=== PATIENT | female | born 1995 | race Caucasian/White ===

== ENCOUNTER 2019-02-02 17:40 | Emergency (ER) | payer SELFPAY ==
--- NOTE | 2019-02-02 17:58 | EDPHY ---
General - History Smoking Status: Current every day smoker Time Seen by Provider: 02/02/19 17:57 Narrative: CLINICAL IMPRESSION: Psychosis ASSESSMENT/PLAN: Patient is a 23-year-old female with a history of asthma, PTSD, OCD and generalized anxiety disorder who presents after being placed on an M1 hold secondary to erratic behavior. Patient is afebrile and nontoxic-appearing, she is very anxious on arrival, pressured speech and hyperactive. Physical examination is otherwise unremarkable. Patient was given 5 of Zyprexa on arrival. CBC revealed no evidence of leukocytosis or anemia. Metabolic panel with no metabolic abnormalities or acute kidney injury. Alcohol negative. Drug screen positive for cannabinoid and opioid. There were no clinical findings to suggest intoxication, metabolic abnormality or other toxidrome. The patient was formally evaluated by behavioral health, [facility] and after formal evaluation deemed appropriate for placement. On repeat examination and prior to transfer the patient is resting comfortably, she is much more comfortable appearing and less anxious. She denies any physical complaints. Dr. Arellano will resume care of this patient at this time, all aspects of this patient's care were discussed with him. We are awaiting placement at this time. DIFFERENTIAL DX: Differential diagnosis including but not limited to cam, anxiety, medication noncompliance, medication side effect, depression and illicit drug use. ED COURSE: 1924: Touch base with [facility], once patient medically clear plan will be for placement. They have already done a formal evaluation prior to arrival. 2057: Patient's Ania is now present. The patient is much more calm, resting comfortably in bed. Patient's reports that over the last week her behavior has been quite erratic. She is unsure exactly what happened today however was told that she decided that she wanted to sell a bunch of her belongings and started yd sale in their front yd. She has on multiple occasions this week gotten into their vehicle knowing that there is no gas in it , driving it for short period and then abandoning at. 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 Her is concerned about this erratic behavior, she has never witness this before and they have been together for over a year. 2205: Awaiting placement at this time. 2337: On repeat examination the patient is still resting comfortably, she is easily arousable. Denies any physical complaints. Case discussed with Dr. Arellano who will resume care of this patient at this time. CHIEF COMPLAINT: Anxiety, M1 hold HPI: Patient is a 23-year-old female with a history of asthma, PTSD, OCD and LISA who presents to the emergency department after being placed on an M1 hold by [facility] prior to arrival. Patient reports she was at her home, she was having a yd sale when police suddenly showed up at her house and stated they were placing her on a mental health hold, she reports running from the police, was detained and brought here for further evaluation. Per M1 hold patient with erratic behavior, gathering knife in the household making the remains feel unsafe, subsequently police were called. Patient reports to me a significant history of PTSD and anxiety exacerbations that present very similar to this, she reports 7 episodes total. She states to me that her episodes are very similar to bipolar and "the unchanged I can't seem to tell the difference". Patient was followed by [facility], was reportedly discharged in October secondary to not being able to pay her bills and frequently being late to her appointments. She does endorse a suicide attempt 12 years prior for which she was admitted for, she tried to overdose on her antidepressants. She denies any suicidal ideation or homicidal ideation today. She denies any history of cam or other psychiatric diagnoses. Patient was on the telephone as I entered the room with her , at the end of her conversation she states that [place] staff [place] the airport [place] which she was trying to "fly way". PMH: Asthma, PTSD, GA D, OCD Family History: Not contributory Social History: Current smoker, occasional marijuana, denies alcohol REVIEW OF SYSTEMS: All other systems negative Constitutional: No fever, no chills, appetite change. Eyes: No discharge, vision change ENT: No sore throat, congestion, ear pain. Cardiovascular: No chest pain, no palpitations. Respiratory: No cough, no shortness of breath. Gastrointestinal: No abdominal pain, no vomiting, diarrhea. Genitourinary: No hematuria, dysuria, flank pain, pelvic pain Musculoskeletal: No back pain, joint swelling, joint pain, myalgias. Skin: No rashes, color change. Neurological: No headache, dizziness, weakness. PHYSICAL EXAM: General Appearance: Alert, very hyperactive, not toxic-appearing. HENT: Normocephalic, atraumatic. Bilateral external ears are normal. Bilateral tympanic membranes are normal with pearly muro reflex. Nares are clear, mucosa is pink. Oropharynx is clear, uvula is midline. There is no tonsillar enlargement or exudate. The dentition is normal. Eyes: PERRLA, no acute vision change, nystagmus, swelling, discharge, pain or photosensitivity. Conjunctiva pink, no pallor or injection. Neck: Supple, nontender, no lymphadenopathy, no midline pain, FROM, no meningismus. Respiratory: There are no retractions, lungs are clear to auscultation. Cardiac: Mild tachycardia, no murmurs or gallops. Gastrointestinal: Abdomen is soft, nontender, bowel sounds normal, no masses/ hernia, no rigidity, guarding or focal peritoneal findings. Neurological: Alert and oriented x 3, CN 2-12 grossly intact, normal gait no ataxia, DTR's intact, normal sensation and strength Skin: Warm, dry, no rashes, no nodules on palpation. Musculoskeletal: Extremities are symmetrical, full range of motion, no tenderness, deformity, swelling, or erythema. Psychiatric: Patient is oriented X 3, patient is agitated, hyperactive. Her speech is very pressured. MEDICAL DECISION MAKING: Patient was seen independently. Secondary supervising physician at time of evaluation was Dr. Chapin. Diagnosis: Psychosis. New, requires workup Summary: See Assessment and Plan for summary of ED visit Clinical lab tests: ordered / reviewed. Independent visualization of images, tracing, or specimens: Yes. Decision to obtain medical records or history from someone other than the patient: Yes, PD report Review / Summarize previous medical records: None available Discussed patient with another provider: Yes Patient Progress: Stable, dispo pending. (Catalina Jain) 1688 care assumed from CRIS Jain pending placement. 0140 patient has been accepted to [facility] by Dr. Fagan I have completed the EMTALA. (Mckay Arellano) - Objective Vital Signs: Initial Vital Signs Temperature (C) 36.8 C 02/02/19 17:44 Heart Rate 116 H 02/02/19 17:44 Respiratory Rate 16 02/02/19 17:44 Blood Pressure 143/90 H 02/02/19 17:44 O2 Sat (%) 99 02/02/19 17:44 O2 Delivery Mode Room Air Allergies/Adverse Reactions: nitrofurantoin [From Macrobid] Allergy (Verified 02/02/19 17:44) Home Medications: Medication Instructions Recorded CLONAZEPAM 02/02/19 Laboratory Results: Laboratory Results 02/02/19 18:00 02/02/19 18:00 02/02/19 02/02/19 02/02/19 20:35 18:00 18:00 WBC RBC Hgb Hct MCV MCH MCHC RDW Plt Count MPV Neut % (Auto) Lymph % (Auto) [place] % (Auto) Eos % (Auto) Baso % (Auto) Nucleat RBC Rel Count Absolute Neuts (auto) Absolute Lymphs (auto) Absolute Monos (auto) Absolute Eos (auto) Absolute Basos (auto) Absolute Nucleated RBC Immature Gran % Immature Gran # Sodium 136 mEq/L mEq/L (135-145) Potassium 3.8 mEq/L mEq/L (3.5-5.2) Chloride 105 mEq/L mEq/L (97-110) Carbon Dioxide 21 mEq/l L mEq/l (22-31) Anion Gap 10 mEq/L mEq/L (6-14) BUN 10 mg/dL mg/dL (7-23) Creatinine 0.6 mg/dL mg/dL (0.6-1.0) Estimated GFR > 60 Glucose 85 mg/dL mg/dL (70-100) Calcium 9.6 mg/dL mg/dL (8.5-10.4) Beta HCG, Qual NEGATIVE Urine Opiates Screen NEGATIVE (NEGATIVE) Urine Barbiturates NEGATIVE (NEGATIVE) Ur Phencyclidine Scrn NEGATIVE (NEGATIVE) Ur Amphetamine Screen NEGATIVE (NEGATIVE) U Benzodiazepines Scrn NON-NEGATIVE H (NEGATIVE) Urine Cocaine Screen NEGATIVE (NEGATIVE) U Marijuana (THC) Screen NON-NEGATIVE H (NEGATIVE) Ethyl Alcohol < 10 mg/dL mg/dL (0-10) 02/02/19 18:00 WBC 9.14 10^3/uL 10^3/uL (3.80-9.50) RBC 4.55 10^6/uL 10^6/uL (4.18-5.33) Hgb 13.3 g/dL g/dL (12.6-16.3) Hct 39.0 % % (38.0-47.0) MCV 85.7 fL fL (81.5-99.8) MCH 29.2 pg pg (27.9-34.1) MCHC 34.1 g/dL g/dL (32.4-36.7) RDW 13.4 % % (11.5-15.2) Plt Count 252 10^3/uL 10^3/uL (150-400) MPV 11.1 fL fL (8.7-11.7) Neut % (Auto) 57.4 % % (39.3-74.2) Lymph % (Auto) 34.6 % % (15.0-45.0) [place] % (Auto) 4.9 % % (4.5-13.0) Eos % (Auto) 1.6 % % (0.6-7.6) Baso % (Auto) 1.3 % % (0.3-1.7) Nucleat RBC Rel Count 0.0 % % (0.0-0.2) Absolute Neuts (auto) 5.24 10^3/uL 10^3/uL (1.70-6.50) Absolute Lymphs (auto) 3.16 10^3/uL H 10^3/uL (1.00-3.00) Absolute Monos (auto) 0.45 10^3/uL 10^3/uL (0.30-0.80) Absolute Eos (auto) 0.15 10^3/uL 10^3/uL (0.03-0.40) Absolute Basos (auto) 0.12 10^3/uL H 10^3/uL (0.02-0.10) Absolute Nucleated RBC 0.00 10^3/uL 10^3/uL (0-0.01) Immature Gran % 0.2 % % (0.0-1.1) Immature Gran # 0.02 10^3/uL 10^3/uL (0.00-0.10) Sodium Potassium Chloride Carbon Dioxide Anion Gap BUN Creatinine Estimated GFR Glucose Calcium Beta HCG, Qual Urine Opiates Screen Urine Barbiturates Ur Phencyclidine Scrn Ur Amphetamine Screen U Benzodiazepines Scrn Urine Cocaine Screen U Marijuana (THC) Screen Ethyl Alcohol Medications Given: Discontinued Medications Olanzapine (Olanzapine) 5 mg PO ONCE ONE Stop: 02/02/19 18:21 Last Admin: 02/02/19 18:29 Dose: 5 mg Departure - Departure Disposition: Other Psych, Not John Clinical Impression: Psychosis Qualifiers: Psychosis type: unspecified psychosis type Qualified Code(s): F29 - Unspecified psychosis not due to a substance or known physiological condition Condition: Fair Referrals: Patient,NotPresent [Unknown] - As per Instructions
[2019-02-02 18:09] LABS: PLATELET COUNT 252 10^3/uL (150-400)
[2019-02-02] MEDS ORDERED: OLANZapine 5 MG TAB PO ONE (18:20)
[2019-02-03 02:01] VITALS: BP 108/74
== END 2019-02-03 02:05 ==
DX: F29 Unspecified psychosis not due to a substance or known physiological condition (principal); F43.10 Post-traumatic stress disorder, unspecified
CPT/HCPCS: 80305; G0480